=== PATIENT | female | born 1950 | race American Indian/Alaskan Native ===

== ENCOUNTER 2017-02-08 10:33 | Day surgery (SDC) | payer BC, OTHER ==
[~2017-02-08] VITALS: Ht 157.5 cm; Wt 95.4 kg
[~2017-02-08 10:33] MED LIST: AMLO5TAB2 PO; ATOR20TA PO; CEFAZOLIN 1,000 MG ONE; CELE200C PO; ERGO500017 PO; FOLI-17 PO; GLIM4TAB2 PO; GLYCOPYRROLATE 0.2MG/1ML ONE; GOLI50PE SC; INDOCYANINE GREEN 25 MG VIAL ONE; LEVO88TA4 PO; LISI1TAB7 PO; MAGN400T26 PO; METF500T4 PO; METH2.5T PO; NEOSTIGMINE 1 MG/ML, 10ML ONE; ONDANSETRON 2MG/ML, 2ML ONE; PROPOFOL 10 MG/ML, 20ML ONE; ROCURONIUM 10 MG/ML ONE; SUCCINYLCHOLINE 20 MG/ML, 10ML ONE; [UNRECOGNIZED DRUG - CODE] TP
[2017-02-08] MEDS ORDERED: LACTATED RINGERS 1,000 ML IV SCH (11:03)
[2017-02-08 11:06] VITALS: BP 167/88
[2017-02-08] MEDS ORDERED: FENTANYL PF 250 MCG/5ML ONE (12:27)
[2017-02-08] MEDS ORDERED: MIDAZOLAM 1 MG/ML, 2ML ONE (12:27)
[2017-02-08] MEDS ORDERED: BUPIVACAINE/PF-EPI 0.25% 1:200K ONE ×2 (13:16)
[2017-02-08] MEDS ORDERED: hydrALAzine 20 MG/ML, 1ML IV PRN (14:30)
[2017-02-08] MEDS ORDERED: ACETAMINOPHEN 325 MG TABLET PO PRN (14:30)
[2017-02-08] MEDS ORDERED: OXYcodone 5 MG/5 ML ORAL.SOL UDC PO PRN (14:30)
[2017-02-08] MEDS ORDERED: METOCLOPRAMIDE 5 MG/ML, 2ML IV PRN (14:30)
[2017-02-08] MEDS ORDERED: ONDANSETRON 2MG/ML, 2ML IVPush PRN (14:30)
[2017-02-08] MEDS ORDERED: LABETALOL 5MG/ML, 20ML IV PRN (14:30)
[2017-02-08] MEDS ORDERED: OXYcodone 5 MG/5 ML ORAL.SOL UDC ONE (16:15)
[2017-02-08] MEDS ORDERED: FENTANYL PF 100 MCG/2ML ONE (16:15)
[2017-02-08] MEDS ORDERED: HYDROmorphone 1 MG/ML, 1ML ONE (16:15)
[2017-02-08] MEDS: FENTANYL PF 100 MCG/2ML IV PRN ×2 (16:20→16:30)
[2017-02-08] MEDS: HYDROmorphone 1 MG/ML, 1ML IV PRN ×2 (16:35→16:45)
[2017-02-08] MEDS ORDERED: ONDANSETRON 2MG/ML, 2ML ONE (16:45)
[2017-02-08] MEDS ORDERED: KETOROLAC 30 MG/1 ML ONE (17:02)
[2017-02-08] MEDS ORDERED: KETOROLAC 30 MG/1 ML IVPush ONE (17:30)
[2017-02-08] MEDS ORDERED: METOCLOPRAMIDE 5 MG/ML, 2ML ONE (18:40)
[2017-02-08] MEDS ORDERED: METOCLOPRAMIDE 5 MG/ML, 2ML IVPush ONE (19:00)
[2017-02-08] MEDS ORDERED: PROCHLORPERAZINE 5 MG/ML, 2ML IVPush ONE (19:00)
== END 2017-02-08 20:30 | disposition home or self-care (01) ==
LOC: OUT 10:33 → EDBD 11:30 → OUT 20:30
PROVIDERS: ATTEND Specialist
DX: D26.0 Other benign neoplasm of cervix uteri (principal); C54.1 Malignant neoplasm of endometrium; K66.0 Peritoneal adhesions (postprocedural) (postinfection); E03.9 Hypothyroidism, unspecified; E11.9 Type 2 diabetes mellitus without complications; E78.00 Pure hypercholesterolemia, unspecified; E66.9 Obesity, unspecified; I10 Essential (primary) hypertension; Z98.890 Other specified postprocedural states; Z90.49 Acquired absence of other specified parts of digestive tract; Z68.35 Body mass index [BMI] 35.0-35.9, adult
CPT/HCPCS: 36415; 38571; 58552; 82962; 86850; 86900; 86923; 88112; 88305; 88307; 88331; 88333; J0330; J0690; J1170; J1885; J2250; J2405; J2704; J2710; J2765; J3010; J7120; S2900; J3490